=== PATIENT | male | born 1985 | race Caucasian/White ===

== ENCOUNTER → 2021-03-14 14:45 | Outpatient (CLI) | payer OTHER, SELFPAY | PROVIDERS: Visit Provider Urology | DX: Z01.812 Encounter for preprocedural laboratory examination (principal); Z11.52 Encounter for screening for COVID-19; Z30.2 Encounter for sterilization | CPT/HCPCS: C9803; U0003; U0005 ==

== ENCOUNTER 2021-03-17 07:28 | Day surgery (SDC) | payer OTHER, SELFPAY ==
[2021-03-11 09:48] VITALS: BMI 33.6
[2021-03-17 07:40] VITALS: BP 154/90; PULSE 85; RESP 18; TEMP 37.3; O2SAT 98
--- NOTE | 2021-03-17 09:41 | P.PN_ITS ---
[facility] Anesthesia Checklist - Patient Identification Patient Identification: Arm Band - Structural Data Admitted From: Home Planned Operative Procedure/s: vasectomy Consent for Planned Operative Procedure(s) Verified: Yes Verified Documents: Surgical Consent, History and Physical - NPO Status Verified Time NPO: 00:00 - Additional verifications Anesthesia Reactions: No Hx Blood Transfusions: No Blood Transfusion Reaction: No - Airway Assessment C-Spine Mobility Assessed: Yes (mp2) TMJ Mobility Assessed: Yes Dentition: Good Dentition - Neurological Assessment Level of Consciousness: Awake, Alert - Anesthesia Plan Anesthesia Risk discussed: Yes Anesthesia Plan: Verified ASA Class: II Anesthesia Type: MAC [facility] History I have reviewed the patient's past medical history: Yes Medical History: Reports:: Anxiety Denies:: Cancer, Diabetes Mellitus Type 1, Diabetes Mellitus Type 2, Internal Pacemaker, MRSA, Seizures *Have you ever received a pneumonia vaccine?: No *Have you received a flu vaccine this season?: No Other Medical History: Denies: Blood Transfusion Reaction Anesthesia experience/problems:: nac Laterality Cases: Bilateral: Tonsillectomy Other Surgeries: No: Pacemaker Amputation: No Fractures: No - *Social History Last grade of school completed: High school graduate Smoking Status: Never smoker Alcohol Intake: current Alcohol Intake Frequency:: a few times a month Substance Use Type: marijuana *Occupational Status:: employed *Travel in the last 8 weeks: None Family Hx:: Diabetes
[2021-03-17 09:53] VITALS: BP 106/62; PULSE 74; RESP 16; TEMP 36.5; O2SAT 97
[2021-03-17 10:08] VITALS: BP 115/77; PULSE 74; RESP 16; O2SAT 96
[2021-03-17 10:23] VITALS: BP 120/77; PULSE 73; RESP 16; O2SAT 97
--- NOTE | 2021-03-17 14:32 | HMH.OPNOTE ---
Date of procedure: 03/17/21 Pre-op Diagnosis:: Sterilization Post-op Diagnosis:: Sterilization Procedure performed:: Vasectomy Surgeon:: Mc Griggs MD SHREDDER/GRANULATOR OPERATOR:: Clyde Castillo Anesthesia: MAC Estimated blood loss (mL): 0 Clinical Note:: 35-year-old white male presents for vasectomy. He was previously seen for vasectomy consultation and we reviewed the operative procedure and postoperative instructions. Operative findings:: Normal scrotum and testicles. Vasectomy went well without problems. Operative note:: Patient taken to the operating suite after informed consent was obtained. He was placed on the operating table in the supine position and monitored anesthesia care administered. He was then prepped and draped in the standard surgical fashion. Preoperative antibiotics administered. The left vas was palpated and brought up to the midline raphae between my thumb and forefinger. Local anesthetic placed under the skin and around the left vas. Incision was then made in the midline raphae and a tenaculum was used to grasp the vas and brought out through the incision. The vasal sheath was then incised and the vas proper was isolated from its surrounding adventitia and 1 clip was placed distally and 2 clips were placed proximally. A 1 cm segment excised. The ends of the vas were cauterized. Hemostasis of sheet of the surrounding tissues. Attention was turned to the right side and the right vas was brought up through the same incision and local anesthetic placed. Identical procedure was performed on the right side. Hemostasis achieved and a 3-0 chromic in a horizontal mattress fashion was placed. Compression dressing applied. Patient tolerated procedure well there are no complications. Condition: stable Disposition: same day Specimens:: vas segments were removed but not sent. Complications:: None
== END 2021-03-17 10:25 | disposition home or self-care (01) ==
LOC: OR 07:29
PROVIDERS: PCP Family Medicine; Visit Provider Urology
PROC: (CPT 55250; principal; 2021-03-17 09:00)
DX: Z30.2 Encounter for sterilization (principal); F41.9 Anxiety disorder, unspecified; F90.9 Attention-deficit hyperactivity disorder, unspecified type; Z79.899 Other long term (current) drug therapy; Z83.3 Family history of diabetes mellitus
CPT/HCPCS: 55250; 96374

== ENCOUNTER 2021-12-25 15:57 | Emergency (ER) | payer OTHER, SELFPAY ==
--- NOTE | 2021-12-25 16:12 | XR_ITS ---
FINAL REPORT CLINICAL HISTORY: pain after bending yesterday FINDINGS: LUMBAR SPINE Three views were obtained. There is no acute fracture. There is no malalignment. There are mild degenerative changes at L5-S1 with small osteophytes. There is no soft tissue abnormality. IMPRESSION: No acute bony abnormality. Mild degenerative change at L5-S1. Reviewed, Interpreted and Dictated by Richard Sarkar III, MD Transcribed by Alise Virk Authenticated and [facility]
[2021-12-25 16:20] VITALS: BP 128/86; PULSE 83; RESP 16; TEMP 36.9; O2SAT 97; BMI 33.6
--- NOTE | 2021-12-25 16:28 | HMH.EDUTC ---
[facility] [place] Clinical Impression: Low back pain Qualifiers: Chronicity: acute Back pain laterality: midline Sciatica presence: without sciatica Qualified Code(s): M54.50 - Low back pain, unspecified Low back strain Qualifiers: Encounter type: initial encounter Qualified Code(s): S39.012A - Strain of muscle, fascia and tendon of lower back, initial encounter Disposition: Home, Self-Care Condition on Discharge: Good Instructions: DI for Low Back Pain Additional Instructions: Go home and rest. It would be best if you rested tomorrow too. No heavy lifting. No twisting. Take the oral medications as directed. The muscle relaxer (cyclobenzaprine--Flexeril) will make you drowsy, so don't drive or operate heavy machinery after taking it. Don't start the oral steroids (medrol dose pack) until tomorrow, since you had the shots in here today. Follow up with your regular doctor. GO TO THE ER FOR ANY WORSENING SYMPTOMS OR CONCERN, ESPECIALLY BOWEL OR BLADDER ISSUES, SADDLE AREA NUMBNESS, FEVER, ETC Prescriptions: Cyclobenzaprine HCl [Cyclobenzaprine 10mg Tab] 10 mg PO BIDP PRN #20 tab PRN Reason: Muscle Spasm Transmission Status: Received by [id number] methylPREDNISolone [Medrol] 4 mg PO DIRECTED 6 Days #21 packet Transmission Status: Received by [id number] Referrals: Carol William MD [Primary Care Provider] - Time of Disposition: 17:05 Medical Decision Making - Medical Records Medical records reviewed: No: I reviewed the patient's medical records. - Royal Inquiry Pt receiving controlled substance: No Vital Signs: 12/25/21 16:20 12/25/21 17:07 Temperature 98.5 F 98.5 F Temperature Source Oral Pulse Rate 83 Pulse Rate [Left] 83 Respiratory Rate 16 16 Blood Pressure 128/36 L Blood Pressure [Right Arm] 128/86 Blood Pressure Mean [Right Arm] 100 02 Sat by Pulse Oximetry 97 Orders (Tests/Meds): ED MEDICATIONS Discontinued Medications Generic Name Dose Route Start Last Admin Trade Name Freq PRN Reason Stop Dose Admin Ketorolac Tromethamine 60 mg 12/25/21 16:45 12/25/21 16:55 Ketorolac 60mg/2ml Vial IM 12/25/21 16:46 60 mg ONCE ONE Administration Methylprednisolone Sodium Succinate 125 mg 12/25/21 16:45 12/25/21 16:55 Methylprednisolone Sod Succ 125mg Vial IM 12/25/21 16:46 125 mg ONCE ONE Administration [facility] [place] - General Stated complaint: AO 12/24@1400@Home injured back Time Seen by Provider: 12/25/21 16:28 Mode of Arrival: Ambulatory Source of Information: Patient Limitations: No Limitations Description of Symptoms (Recalled from Triage Doc. by RN): patient comes in with complaints of lower back pain. patient states he was working at home and hit it. HEENT Symptoms (Recalled from RN notes): No Resp Symptoms (Recalled from RN notes): No Skin Symptoms (Recalled from RN notes): No MS Symptoms (Recalled from RN notes): Yes Functional Status (Recalled from RN notes): n/a - History of Present Illness Provider Complaint: He states that for the past 1 day he has had low back pain. He denies any known injury. His pain did start after he had moved a piece of plywood. He assumes that he strained or pulled a muscle. - Related Data Home Medications Medication Instructions Recorded Confirmed buPROPion HCL [Wellbutrin Sr] 100 mg PO DAILY 03/11/21 03/17/21 Previous Rx's Medication Instructions Recorded Cyclobenzaprine HCl 10 mg PO BIDP PRN #20 tab 12/25/21 [Cyclobenzaprine 10mg Tab] methylPREDNISolone [Medrol] 4 mg PO DIRECTED 6 Days #21 12/25/21 packet Allergies Allergy/AdvReac Type Severity Reaction Status Date / Time No Known Allergies Allergy Verified 12/25/21 16:22 - Worker's Comp Is this a Worker's Comp case?: No [facility] History - Hepatitis A Screen Attestation statement:: This patient has been screened for Hepatitis A risk factors. I have reviewed the patient's past medical history:
[2021-12-25 17:07] VITALS: BP 128/36; PULSE 83; RESP 16; TEMP 36.9
== END 2021-12-25 17:22 | disposition home or self-care (01) ==
PROVIDERS: Emergency Provider Nurse Practitioner Family; PCP Family Medicine
DX: S39.012A Strain of muscle, fascia and tendon of lower back, initial encounter (principal); X50.0XXA Overexertion from strenuous movement or load, initial encounter; Y93.9 Activity, unspecified; Y92.009 Unspecified place in unspecified non-institutional (private) residence as the place of occurrence of the external cause
CPT/HCPCS: 72100; 96372; 99212; G0463